=== PATIENT | male | born 1960 | race African-American/Black ===

== ENCOUNTER 2023-08-06 05:54 | Observation (INO) ==
[2023-08-06 06:39] LABS: Rapid COVID-19 Molecular Undetected (Undetected)
[2023-08-06] MEDS ORDERED: ceFAZolin 2 GM PREMIX 2 GM/50 ML BAG ONE (06:40)
[2023-08-06] MEDS ORDERED: Bupivacaine 0.5% SDV PF 30ML VIAL ONE (07:05)
[2023-08-06] MEDS ORDERED: Dexamethasone IV 4 MG/ML VIAL 1 ml VIAL ONE (07:07)
[2023-08-06] MEDS ORDERED: Ondansetron 4 mg VIAL 2 MG/ML 2 ml VIAL ONE (07:07)
[2023-08-06] MEDS ORDERED: Midazolam 2 mg/2 ml VIAL 1 mg/ml 2 ml VIAL (2 mg) ONE (07:07)
[2023-08-06] MEDS ORDERED: Propofol 10 MG/ML 20 ML BTL ONE (07:07)
[2023-08-06] MEDS ORDERED: Lidocaine 2% PF 5 ML VIAL ONE (07:07)
[2023-08-06] MEDS ORDERED: fentaNYL 250 mcg/5 ml 50 MCG/ML 5 ml VIAL (250 MCG) ONE (07:07)
[2023-08-06] MEDS ORDERED: Rocuronium 50 mg VIAL 10 mg/ml 5 ml VIAL (50 mg) ONE ×3 (07:07→10:56)
[2023-08-06] MEDS ORDERED: fentaNYL 100 mcg/2 ml 50 MCG/ML VIAL IV PRN (07:21)
[2023-08-06] MEDS ORDERED: Ondansetron 4 mg VIAL 2 MG/ML 2 ml VIAL IV PRN ×2 (07:21→07:24)
[2023-08-06] MEDS ORDERED: Naloxone 0.4 mg VIAL 0.4 mg/ml 1 ml VIAL IV PRN (07:21)
[2023-08-06] MEDS ORDERED: Bupivacaine 0.25% SDV 30 ML ONE (07:25)
[2023-08-06] MEDS ORDERED: HYDROmorphone 0.5 MG/0.5 ML SYRINGE ONE ×3 (07:53→11:31)
[2023-08-06] MEDS ORDERED: Phenylephrine 40 mcg/mL 10mL (400mcg) SYRINGE ONE (10:36)
[2023-08-06] MEDS ORDERED: Phenylephrine IV 10 MG/ML 1 ml VIAL ONE (10:36)
[2023-08-06 12:54] LABS: ABS Lymphocytes 0.5 10^3/uL (1.0-4.8); ABS Monocytes 0.2 10^3/uL (0.0-1.1); Hematocrit 39.2 % (38-53); Hemoglobin 13.2 g/dL (13.2-16.3); Lymphocyte % 3.8 %; Mean Corpuscular Hemoglobin 32.4 pg (27-33); Mean Corpuscular Hgb Conc 33.7 g/dL (31-36); Mean Corpuscular Volume 96.2 fL (80-97); Mean Platelet Volume 6.8 fL (7.5-11.2); Platelet Count 235 10^3/uL (150-450); Red Blood Count 4.07 10^6/uL (4.06-5.63); Red Cell Distribution Width 13.5 % (12-17); White Blood Count 12.7 10^3/uL (3.6-10.2)
[2023-08-06] MEDS: Lactated Ringers 1000 ml BAG 1,000 ML IV SCH (13:13)
[2023-08-06] MEDS: BUPIVACAINE **LIPOSOME/PF 13.3 MG/ML (266MG/ 20ML) VIAL (RESTRICTED) INFIL ONE (13:13)
[2023-08-06] MEDS: Buffered Lidocaine 1% SYRIN 1 ml INTRADERM ONE (13:13)
[2023-08-06] MEDS: NS 0.9% 1000 ml BAG 1,000 ML IV SCH (13:13)
[2023-08-06] MEDS: Neomycin/Polym/Bacit TOP OINT 15 GM TOPICAL SCH (13:14)
[2023-08-06] MEDS: Magnesium Hydroxide LIQ 30 ML UDC PO SCH (13:14)
[2023-08-06 13:36] LABS: Calcium 8.4 mg/dL (8.6-10.3); Creatinine, Serum 0.95 mg/dL (0.67-1.17); Potassium 4.7 mmol/L (3.5-5.0); eGFR CKD-EPI 91.1 (>60)
[2023-08-07 08:29] LABS: ABS Monocytes 0.7 10^3/uL (0.0-1.1); Eosinophil % 0.4 %; Hematocrit 35.1 % (38-53); Lymphocyte % 25.9 %; Mean Corpuscular Hemoglobin 32.5 pg (27-33); Mean Corpuscular Hgb Conc 34.2 g/dL (31-36); Mean Corpuscular Volume 94.9 fL (80-97); Mean Platelet Volume 7.1 fL (7.5-11.2); Platelet Count 214 10^3/uL (150-450); Red Cell Distribution Width 13.2 % (12-17); White Blood Count 7.8 10^3/uL (3.6-10.2)
[2023-08-07 08:47] LABS: Calcium 8.3 mg/dL (8.6-10.3); Creatinine, Serum 0.78 mg/dL (0.67-1.17); Potassium 3.7 mmol/L (3.5-5.0); eGFR CKD-EPI 101.5 (>60)
[2023-08-07 11:20] VITALS: BP 141/98
== END 2023-08-07 13:30 | disposition home or self-care (01) ==
LOC: SSU 05:54 → OR 05:54
PROVIDERS: ADMIT Urology; ATTEND Urology